=== PATIENT | male | born 1995 | race Two or more races ===

== ENCOUNTER 2020-05-25 19:22 | Emergency (ER) | payer BC ==
[2020-05-25] MEDS ORDERED: ONDANSETRON HCL INJ/PF 4 MG/2 ML SDV IV ONE (19:37)
--- NOTE | 2020-05-25 19:38 | ER Document Report ---
ED Medical Screen (RME) - General Chief Complaint: Abdominal Pain Stated Complaint: STOMACH PAIN Time Seen by Provider: 05/25/20 19:30 - HPI Notes: 05/25/20 19:37 25-year-old male to the emergency department with complaints of acute onset of abdominal pain that began just prior to arrival. He states it started at work. He states that he has had nausea with it. He denies any diarrhea or vomiting. He denies any fevers or chills. He admits to some low back pain with it. Denies any urinary symptoms. He states he is never had pain like this before. I performed a brief medical screening exam on the patient determined that the patient needs further evaluation and management by main side provider. I have placed initial orders to help expedite care. - Related Data Allergies/Adverse Reactions: No Known Allergies Allergy (Verified 05/25/20 19:34) Physical Exam - Vital signs Vitals: Temp Pulse Resp BP Pulse Ox 98.2 F 110 H 19 180/106 H 98 05/25/20 19:31 05/25/20 19:31 05/25/20 19:31 05/25/20 19:31 05/25/20 19:31 Course - Vital Signs Vital signs: Temp Pulse Resp BP Pulse Ox 98.2 F 110 H 19 180/106 H 98 05/25/20 19:31 05/25/20 19:31 05/25/20 19:31 05/25/20 19:31 05/25/20 19:31
[2020-05-25 20:16] LABS: ALBUMIN 4.6 g/dL (3.5-5.0); ALKALINE PHOSPHATASE 61 U/L (38-126); ANION GAP 10 (5-19); ASPARTATE AMINO TRANSFERASE 111 U/L (17-59); BILIRUBIN,DIRECT 0.2 mg/dL (0.0-0.4); BILIRUBIN,TOTAL 1.1 mg/dL (0.2-1.3); BLOOD UREA NITROGEN 12 mg/dL (7-20); CARBON DIOXIDE 25 mmol/L (22-30); CHLORIDE 104 mmol/L (98-107); GLUCOSE 90 mg/dL (75-110); POTASSIUM 4.2 mmol/L (3.6-5.0); TOTAL PROTEIN 7.9 g/dL (6.3-8.2)
[2020-05-25 21:10] LABS: ABSOLUTE EOSINOPHILS # (AUTO) 0.1 10^3/uL (0.0-0.6); ABSOLUTE LYMPHOCYTES (AUTO) 1.5 10^3/uL (0.5-4.7); ABSOLUTE MONOCYTES (AUTO) 0.7 10^3/uL (0.1-1.4); ABSOLUTE NEUT (AUTO) 5.6 10^3/uL (1.7-8.2); BASOPHILS % (AUTO) 0.4 % (0-2); EOSINOPHILS % (AUTO) 1.1 % (0-6); HEMATOCRIT 48.7 % (37.9-51.0); HEMOGLOBIN 16.6 g/dL (13.5-17.0); MEAN CORPUSCULAR HEMOGLOBIN 29.3 pg (27.0-33.4); MEAN CORPUSCULAR HGB CONC 34.1 g/dL (32.0-36.0); MEAN CORPUSCULAR VOLUME 86 fl (80-97); MONOCYTES % (AUTO) 9.2 % (3-13); PLATELET COUNT 144 10^3/uL (150-450); RED BLOOD COUNT 5.66 10^6/uL (4.35-5.55); RED CELL DISTRIBUTION WIDTH 13.8 % (11.5-14.0); SEGMENTED NEUTROPHILS % (AUTO) 70.3 % (42-78); TOTAL CELLS COUNTED % (AUTO) 100 %; WHITE BLOOD COUNT 7.9 10^3/uL (4.0-10.5)
[2020-05-25] MEDS ORDERED: ACETAMINOPHEN 1,000 MG/100 ML RTUPB IV ONE (22:39)
[2020-05-25] MEDS ORDERED: NORMAL SALINE 1000 ML 1,000 ML IV ONE (22:40)
--- NOTE | 2020-05-25 23:55 | ER Document Report ---
ED General - General Chief Complaint: Abdominal Pain Stated Complaint: STOMACH PAIN Time Seen by Provider: 05/25/20 19:30 Notes: 25-year-old male history of other liver problem presents with presents sharp moderate to severe pain below umbilicus radiating to back that started just prior to arrival associated with nausea. Patient was standing talking to coworkers when pain started. Patient says he had 1 episode of similar pain in the past approximately 1 year ago where he had pain for several days and then it went away without any intervention. Patient denies any vomiting, diarrhea, constipation, melena, bright red blood per rectum, dizziness, fainting, chest pain, flank pain, dysuria, urgency, frequency, fever, immunocompromise history, recent antibiotics, prior abdominal surgeries, alcohol/drug abuse - Related Data Allergies/Adverse Reactions: No Known Allergies Allergy (Verified 05/25/20 19:34) Past Medical History - General Information source: Patient - Social History Smoking Status: Former Smoker Family History: Reviewed & Not Pertinent Patient has homicidal ideation: No Review of Systems - Review of Systems Notes: REVIEW OF SYSTEMS: CONSTITUTIONAL : Denies fever, chills, or sweats. EENT: Denies recent cold/sinus symptoms, denies throat pain CARDIOVASCULAR: Denies chest pain, KIERRA RESPIRATORY: Denies cough, denies shortness of breath. GASTROINTESTINAL: + abdominal pain, -vomiting. GENITOURINARY: Denies difficulty urinating, painful urination. MUSCULOSKELETAL: Denies neck pain, back pain. SKIN: Denies rash or skin lesions. HEMATOLOGIC : Denies easy bruising or bleeding. LYMPHATIC: Denies swollen, enlarged glands. NEUROLOGICAL: Denies headache, denies change in gait. PSYCHIATRIC: Denies anxiety or stress or depression. Physical Exam - Vital signs Vitals: Temp Pulse Resp BP Pulse Ox 98.2 F 110 H 19 180/106 H 98 05/25/20 19:31 05/25/20 19:31 05/25/20 19:31 05/25/20 19:31 05/25/20 19:31 - Notes Notes: PHYSICAL EXAMINATION: GENERAL: Well-appearing, well-nourished young adult male in no acute distress. HEAD: Atraumatic, normocephalic. EYES: Pupils equal round and appropriate constriction, sclera anicteric, conjunctiva are normal. ENT: nares patent, moist mucous membranes. NECK: Normal range of motion, supple without lymphadenopathy LUNGS: Breath sounds clear to auscultation bilaterally and equal. No wheezes rales or rhonchi. HEART: Borderline tachycardic, regular rhythm, no murmurs rubs or gallops ABDOMEN: Soft, tenderness below umbilicus to right, no rebound, no guarding, no masses, no CVAT EXTREMITIES: Normal range of motion, no pitting or edema. No cyanosis. NEUROLOGICAL: Awake, alert, conversing appropriately, moves all extremities spontaneously. PSYCH: Normal mood, normal affect. SKIN: Warm, Dry, normal turgor, no rashes or lesions noted. Course - Re-evaluation Re-evalutation: 05/25/20 23:54 Very well-appearing patient, mild tachycardia likely secondary to pain, tenderness without presence of acute surgical abdomen, will obtain CT rule out appendicitis, renal colic, less likely diverticulitis, possible epiploic appendagitis. No signs of bleeding, hemodynamically stable, will continue to monitor pending work-up. Will give fluid bolus and analgesia. 05/26/20 03:22 Patient feels greatly improved with analgesia, no emergent findings on CT, patient has a mild transaminitis which she says he was diagnosed with before but has not followed up with his health and nutrition specialist about. I stressed the importance of following up to find out what the diagnosis was as it could be something that could be treated now to prevent further liver disease in the future. Gave patient extensive return to ED precautions which she demonstrated understanding of. Patient demonstrates relief that his symptoms have improved and appreciation of his care and denied having any other questions or concerns at time of discharge. Given a copy of all results to bring with him for follow-up. - Vital Signs Vital signs: Temp Pulse Resp BP Pulse Ox 98.2 F 80 19 108/85 99 05/25/20 19:31 05/26/20 03:00 05/25/20 19:31 05/26/20 02:27 05/26/20 02:28 - Laboratory Result Diagrams: 05/25/20 20:56 05/25/20 19:47 Laboratory results interpreted by me: 05/25/20 05/25/20 19:47 20:56 RBC 5.66 H Plt Count 144 L AST 111 H ALT 210 H Discharge - Discharge Clinical Impression: Umbilical hernia without obstruction and without gangrene, Transaminitis Abdominal pain Qualifiers: Abdominal location: unspecified location Qualified Code(s): R10.9 - Unspecified abdominal pain Disposition: HOME, SELF-CARE Additional Instructions: Abdominal Pain There are many causes of abdominal pain. Pain can mean a serious problem requiring surgery (such as appendicitis). It can also be an innocent problem that goes away on its own (such as a viral infection). Often, time must pass to determine the cause of pain. The physician does not feel that hospitalization is necessary, at present. Things may change within the next 24 hours. Call the doctor or come back for re- examination if any problems occur, such as: (1) Pain that becomes more severe, steady, or becomes concentrated in one specific area. Also, pain that is more severe with movement or coughing. (2) Vomiting that persists or becomes more frequent. (3) Blood in the vomitus, urine, or bowel movements. Blood in the stool may have a tarry or black appearance. (4) Shaking chills or fever greater than 100 degrees F. (5) The abdomen becomes more distended or swollen. (6) Bowel movements cease. (7) Failure to improve as expected. Your CT scan showed fatty liver which may be the cause of your abnormal liver tests. Follow-up with a health and nutrition specialist within 1 week and discuss your abnormal liver tests. Follow-up with your primary doctor within 2 weeks. If you have any worsening pain, change in pain, vomiting, black stools, bloody stools, inability to pass stool or gas, fever, difficulty urinating, or any other worsening or alarming symptoms please return to the emergency department immediately. Referrals: MAHI STRONG MD [ACTIVE STAFF] - Follow up in 1 week YEVGENIY HINKLE MD [ACTIVE STAFF] - Follow up in 1 week
--- NOTE | 2020-05-26 01:13 | RADIOLOGY REPORT (SQ) ---
EXAM DESCRIPTION: CT ABDOMEN PELVIS WITH IV CONTRAST COMPLETED DATE/TME: 05/25/2020 22:38 CLINICAL HISTORY: RLQ/periumbilical pain. CREAT 0.92 COMPARISON: None Available. TECHNIQUE: CT of the abdomen and pelvis performed following IV administration of 100 mL Omnipaque 350. FINDINGS: Lung Bases: The visualized lung bases are clear. Bones: No destructive bone lesions identified. Abdomen: Liver: The liver has normal size and decreased density. No intrahepatic biliary dilatation. Gallbladder: No calcified gallstones. Spleen, Pancreas, and Adrenal Glands: The spleen, pancreas, and adrenal glands are unremarkable. Kidneys: No hydronephrosis or obstructing calculus. Vasculature: The aorta and IVC have normal caliber and position. Circumaortic left renal vein. The portal vein is patent. The proximal visceral and renal arteries are patent. Stomach: The stomach and duodenum have normal course. Other: No free intraperitoneal air. No free fluid or lymphadenopathy. Small fat-containing umbilical hernia. Pelvis: Bladder: Urinary bladder is unremarkable. Bowel: No dilated loops of large or small bowel. Appendix: Normal appendix. Pelvis: Prostate is not enlarged. IMPRESSION: 1. No acute inflammatory or obstructive process identified. 2. Hepatic steatosis. This exam was performed according to our departmental dose-optimization program, which includes automated exposure control, adjustment of the mA and/or kV according to patient size and/or use of iterative reconstruction technique.
[2020-05-26 02:11] LABS: APPEARANCE,URINE CLEAR; BILIRUBIN,URINE NEGATIVE (NEGATIVE); COLOR,URINE STRAW; GLUCOSE, URINE NEGATIVE (NEGATIVE); KETONES,URINE NEGATIVE (NEGATIVE); PROTEIN,URINE NEGATIVE (NEGATIVE); URINE SPECIFIC GRAVITY 1.051; UROBILINOGEN,URINE NEGATIVE mg/dL (<2.0)
[2020-05-26] MEDS ORDERED: KETOROLAC TROMETHAMINE INJ/PF 30 MG/1 ML SDV IV ONE (02:15)
[2020-05-26 03:33] VITALS: BP 124/70
== END 2020-05-26 03:34 | disposition home or self-care (01) ==
LOC: ER 19:22
DX: K42.9 Umbilical hernia without obstruction or gangrene (principal); R74.01 Elevation of levels of liver transaminase levels; R10.33 Periumbilical pain; R11.0 Nausea
CPT/HCPCS: 99285; 96375; 96365; 36415; 83690; 85025; 80053; 81001; 74177; J1885; J7030; J0131